=== PATIENT | male | born 1960 | race American Indian/Alaskan Native ===

== ENCOUNTER 2017-09-26 10:59 | Emergency (ER) | payer MEDICARE ==
[2017-09-26] MEDS ORDERED: ASPIRIN PO ONE (11:33)
[2017-09-26 11:58] LABS: Basophils % (Auto) 0.7 % (0.0-1.8); Eosinophils % (Auto) 0.7 % (0.0-4.3); Hematocrit 42.2 % (35.5-45.6); Hemoglobin 14.4 gm/dl (11.8-15.2); Lymphocytes # (Auto) 1.6 K/mm3 (1.2-5.4); Lymphocytes % (Auto) 24.9 % (13.4-35.0); Mean Corpuscular HGB Conc 34 % (32-34); Mean Corpuscular Hemoglobin 32 pg (28-32); Mean Corpuscular Volume 93 fl (84-94); Monocytes # (Auto) 0.6 K/mm3 (0.0-0.8); Platelet Count 159 K/mm3 (140-440); Red Blood Count 4.56 M/mm3 (3.65-5.03); Red Cell Distribution Width 14.2 % (13.2-15.2)
[2017-09-26 12:14] LABS: Alanine Aminotransferase 21 units/L (7-56); Albumin 3.8 g/dL (3.9-5); BUN/Creatinine Ratio 16; Blood Urea Nitrogen 13 mg/dL (9-20); Calcium 8.9 mg/dL (8.4-10.2); Hemolysis Index 4; Lipase 42 units/L (13-60)
[2017-09-26 12:17] LABS: Bilirubin,Direct < 0.2 mg/dL (0-0.2)
--- NOTE | 2017-09-26 23:48 | Emergency Department Report ---
HPI - General Chief Complaint: Abdominal Pain Time Seen by Provider: 09/26/17 23:19 - HPI HPI: Room 7 The patient is a 57-year-old male presented with a chief complaint of abdominal pain. The patient states 1 month his pain in the midepigastric region that worsens with meals. The patient states he has a constant abdominal pain but it worsens with meals. The patient states she has a constant bloated feeling. Patient is to nausea but denies vomiting. Patient states his stools have switched recently from loose to form to black (approximately 1-2 weeks ago). Patient last bowel movement occurred in the ED and was watery. Patient states 2 days ago had an episode of left-sided chest pain that was sharp in nature and lasted 1 minute. Patient currently denies chest pain. Patient denied having shortness of breath, nausea/vomiting or diaphoresis with the previous chest pain Location: Abdomen Duration: 1 Month Quality: Pain Severity: 8/10 Modifying factors: [see above] Context: [see above] Mode of transportation: The patient drove himself to the emergency department and there are no visitors present ED Past Medical Hx - Past Medical History Previous Medical History?: Yes Hx Hypertension: Yes Hx Diabetes: Yes Hx Liver Disease: Yes (cirrhosis) Additional medical history: cirrhosis, pacemaker - Surgical History Past Surgical History?: Yes Hx Pacemaker: Yes Additional Surgical History: PACEMAKER - Family History Family history: no significant - Social History Smoking Status: Current Every Day Smoker (1/2 ppd) Substance Use Type: Marijuana - Medications Home Medications: Home Medications Medication Instructions Recorded Confirmed Last Taken Type Finasteride [Propecia] 1 mg PO QDAY 05/17/13 09/27/17 Unknown History Diphenoxylate/Atropine [Lomotil] 2 tab PO QID PRN #20 tablet 09/27/17 Unknown Rx Famotidine [Pepcid] 20 mg PO BID #20 tablet 09/27/17 Unknown Rx Gabapentin [Neurontin] 300 mg PO BID 09/27/17 09/27/17 Unknown History HYDROcodone/APAP 5-325 [[place] 1 - 2 each PO Q6HR PRN #14 tablet 09/27/17 Unknown Rx 5/325] Insulin Aspart Prot/Aspart(Nf) 30 units SQ BID 09/27/17 09/27/17 Unknown History [Novolog Mix 70/30] Metoprolol [Lopressor TAB] 50 mg PO BID 09/27/17 09/27/17 Unknown History Promethazine [Phenergan TAB] 25 mg PO Q6HR PRN #20 tab 09/27/17 Unknown Rx Promethazine [Phenergan] 25 mg [place] Q6HR PRN #5 supp.rect 09/27/17 Unknown Rx Rifaximin [Xifaxan] 550 mg PO BID 09/27/17 09/27/17 Unknown History Rivaroxaban [Xarelto] 20 mg PO QDAY 09/27/17 09/27/17 Unknown History Tamsulosin [Flomax] 0.4 mg PO QDAY 09/27/17 09/27/17 Unknown History Verapamil [Calan] 120 mg PO DAILY 09/27/17 09/26/17 Unknown History glipiZIDE [Glipizide] 5 mg PO DAILY 09/27/17 09/27/17 Unknown History ED Review of Systems ROS: Stated complaint: ABDOMINAL/CHEST PAIN Other details as noted in HPI Constitutional: denies: fever Respiratory: denies: shortness of breath Cardiovascular: chest pain Gastrointestinal: abdominal pain, nausea, vomiting, diarrhea, melena Physical Exam - Physical Exam Vital Signs: Vital Signs 09/26/17 09/26/17 11:27 23:36 Temperature 97.6 F 98.5 F Pulse Rate 62 64 Respiratory 16 20 Rate Blood Pressure 110/79 Blood Pressure 162/96 [Left] O2 Sat by Pulse 100 100 Oximetry Physical Exam: GENERAL: The patient is well-developed well-nourished male lying on stretcher not appearing to be in acute distress. [] HEENT: Normocephalic. Atraumatic. Extraocular motions are intact. Patient has moist mucous membranes. NECK: Supple. Trachea midline CHEST/LUNGS: Clear to auscultation. There is no respiratory distress noted. HEART/CARDIOVASCULAR: Regular. There is no tachycardia. There is no gallop rub or murmur. ABDOMEN: Abdomen is soft, with discomfort to palpation in the midepigastric region. No rebound or guarding. Patient has normal bowel sounds. There is no abdominal distention. SKIN: There is no rash. There is no edema. There is no diaphoresis. NEURO: The patient is awake, alert, and oriented. The patient is cooperative. The patient has normal speech MUSCULOSKELETAL: There is no evidence of acute injury. STOOL SAMPLE PROVIDED IN CUP BY PATIENT: johsnon liquid, guaiac negative ED Course Vital Signs 09/26/17 09/26/17 11:27 23:36 Temperature 97.6 F 98.5 F Pulse Rate 62 64 Respiratory 16 20 Rate Blood Pressure 110/79 Blood Pressure 162/96 [Left] O2 Sat by Pulse 100 100 Oximetry - Consultations Consultation #1: 09/27/17 01:34 GI paged 09/27/17 01:[address] Dorado-can have patient follow-up as outpatient ED Medical Decision Making - Lab Data Result diagrams: 09/26/17 11:41 09/26/17 11:41 Laboratory Tests 09/26/17 09/26/17 09/26/17 11:41 11:41 14:53 WBC 6.3 RBC 4.56 Hgb 14.4 Hct 42.2 MCV 93 MCH 32 MCHC 34 RDW 14.2 Plt Count 159 Lymph % (Auto) 24.9 [place] % (Auto) 9.0 H Eos % (Auto) 0.7 Baso % (Auto) 0.7 Lymph # 1.6 [place] # 0.6 Eos # 0.0 Baso # 0.0 Seg Neutrophils % 64.7 Seg Neutrophils # 4.1 Sodium 142 Potassium 4.3 Chloride 104.3 Carbon Dioxide 24 Anion Gap 18 BUN 13 Creatinine 0.8 Estimated GFR > 60 BUN/Creatinine Ratio 16 Glucose 146 H POC Glucose Calcium 8.9 Total Bilirubin 0.50 Direct Bilirubin < 0.2 Indirect Bilirubin 0.3 AST 18 ALT 21 Alkaline Phosphatase 68 Troponin T < 0.010 < 0.010 Total Protein 6.7 Albumin 3.8 L Albumin/Globulin Ratio 1.3 Lipase 42 09/26/17 09/26/17 17:15 19:02 WBC RBC Hgb Hct MCV MCH MCHC RDW Plt Count Lymph % (Auto) [place] % (Auto) Eos % (Auto) Baso % (Auto) Lymph # [place] # Eos # Baso # Seg Neutrophils % Seg Neutrophils # Sodium Potassium Chloride Carbon Dioxide Anion Gap BUN Creatinine Estimated GFR BUN/Creatinine Ratio Glucose POC Glucose 75 Calcium Total Bilirubin Direct Bilirubin Indirect Bilirubin AST ALT Alkaline Phosphatase Troponin T < 0.010 Total Protein Albumin Albumin/Globulin Ratio Lipase - EKG Data -: EKG Interpreted by De EKG shows normal: sinus rhythm Rate: normal - EKG Data When compared to previous EKG there are: no significant change Interpretation: unchanged when compared t (06/05/2017), nonspecific ST-T wave peter - Radiology Data Radiology results: report reviewed (CT abdomen and pelvis), image reviewed (CT abdomen and pelvis) FINAL REPORT PROCEDURE: CT ABDOMEN PELVIS WO CON TECHNIQUE: Computerized axial tomography of the abdomen and pelvis was performed without intravenous contrast. This study is performed without intravascular contrast material and its sensitivity for abdominal and pelvic pathology, including neoplasms, inflammation, abscess, free fluid, thrombosis, arterial dissection and infarction, is reduced compared with a contrast enhanced study. HISTORY: epigastric abdominal pain COMPARISON: No prior studies are available for comparison. FINDINGS: Visualized lower thorax: No significant abnormality. Liver: Normal size and attenuation. Spleen: Normal size and attenuation. Gallbladder and biliary system: There has been a cholecystectomy. Bile ducts are normal in caliber.. Pancreas: There is edema surrounding the tail the pancreas. There is focal thickening of the pancreatic tail. Findings suggest possibility of pancreatitis. Mass considered less likely but not excluded. Contrast-enhanced exam may be helpful. Correlation with amylase and lipase levels may be helpful.. Adrenals: Normal. Kidneys: There are no kidney stones or ureteral stones. There is no hydronephrosis.. GI tract: There is no bowel obstruction. There are thickened loops of small bowel suggesting possible enteritis. The appendix is normal.. Lymph nodes and mesentery: Normal. Vasculature: Normal. Bladder: Normal. Reproductive organs: Normal. Peritoneum: There is no ascites or free air, abscess or adenopathy.. Musculoskeletal structures: No significant abnormality. Other: None. IMPRESSION: There has been a cholecystectomy. Bile ducts are normal in caliber.. There is edema surrounding the tail the pancreas. There is focal thickening of the pancreatic tail. Findings suggest possibility of pancreatitis. Mass considered less likely but not excluded. Contrast-enhanced exam may be helpful. Correlation with amylase and lipase levels may be helpful.. There are no kidney stones or ureteral stones. There is no hydronephrosis.. There is no bowel obstruction. There are thickened loops of small bowel suggesting possible enteritis. The appendix is normal.. There is no ascites or free air, abscess or adenopathy.. . Transcribed By: CO Dictated By: REINA FLOR MD Electronically Authenticated By: REINA FLOR MD Signed Date/Time: 09/26/172121 DD/ 21 TD/TT: 09/26/172121 - Differential Diagnosis pancreati, partial small bowel instruction, peptic ulcer disease, gastritis Critical care attestation.: If time is entered above; I have spent that time in minutes in the direct care of this critically ill patient, excluding procedure time. ED Disposition Clinical Impression: Acute abdominal pain Disposition: TO HOME OR SELFCARE Is pt being admited?: No Does the pt Need Aspirin: No Condition: Stable Instructions: Abdominal Pain (ED) Additional Instructions: Return to the emergency department immediately should you develop worsening symptoms, fever, inability to tolerate food or liquid or any other concerns. Prescriptions: Diphenoxylate/Atropine [Lomotil] 2 tab PO QID PRN #20 tablet PRN Reason: Diarrhea Famotidine [Pepcid] 20 mg PO BID #20 tablet HYDROcodone/APAP 5-325 [[place] 5/325] 1 - 2 each PO Q6HR PRN #14 tablet PRN Reason: Pain Promethazine [Phenergan TAB] 25 mg PO Q6HR PRN #20 tab PRN Reason: Nausea Promethazine [Phenergan] 25 mg [place] Q6HR PRN #5 supp.rect PRN Reason: Vomiting Referrals: PRIMARY CARE, [Primary Care Provider] - 3-5 Days PARVIZ DORADO MD [Staff Physician] - 3-5 Days Time of Disposition: 01:50
--- NOTE | 2017-09-27 01:27 | Cat Scan Report ---
FINAL REPORT PROCEDURE: CT ABDOMEN PELVIS WO CON TECHNIQUE: Computerized axial tomography of the abdomen and pelvis was performed without intravenous contrast. This study is performed without intravascular contrast material and its sensitivity for abdominal and pelvic pathology, including neoplasms, inflammation, abscess, free fluid, thrombosis, arterial dissection and infarction, is reduced compared with a contrast enhanced study. HISTORY: epigastric abdominal pain COMPARISON: No prior studies are available for comparison. FINDINGS: Visualized lower thorax: No significant abnormality. Liver: Normal size and attenuation. Spleen: Normal size and attenuation. Gallbladder and biliary system: There has been a cholecystectomy. Bile ducts are normal in caliber.. Pancreas: There is edema surrounding the tail the pancreas. There is focal thickening of the pancreatic tail. Findings suggest possibility of pancreatitis. Mass considered less likely but not excluded. Contrast-enhanced exam may be helpful. Correlation with amylase and lipase levels may be helpful.. Adrenals: Normal. Kidneys: There are no kidney stones or ureteral stones. There is no hydronephrosis.. GI tract: There is no bowel obstruction. There are thickened loops of small bowel suggesting possible enteritis. The appendix is normal.. Lymph nodes and mesentery: Normal. Vasculature: Normal. Bladder: Normal. Reproductive organs: Normal. Peritoneum: There is no ascites or free air, abscess or adenopathy.. Musculoskeletal structures: No significant abnormality. Other: None. IMPRESSION: There has been a cholecystectomy. Bile ducts are normal in caliber.. There is edema surrounding the tail the pancreas. There is focal thickening of the pancreatic tail. Findings suggest possibility of pancreatitis. Mass considered less likely but not excluded. Contrast-enhanced exam may be helpful. Correlation with amylase and lipase levels may be helpful.. There are no kidney stones or ureteral stones. There is no hydronephrosis.. There is no bowel obstruction. There are thickened loops of small bowel suggesting possible enteritis. The appendix is normal.. There is no ascites or free air, abscess or adenopathy.. .
[2017-09-27 02:13] VITALS: BP 150/89
== END 2017-09-27 02:33 | disposition home or self-care (01) ==
LOC: ED 10:59
DX: R10.13 Epigastric pain (principal); I10 Essential (primary) hypertension; E11.9 Type 2 diabetes mellitus without complications; F17.210 Nicotine dependence, cigarettes, uncomplicated; F12.10 Cannabis abuse, uncomplicated; Z91.041 Radiographic dye allergy status; Z95.0 Presence of cardiac pacemaker
CPT/HCPCS: 36415; 74176; 80048; 80074; 82271; 82962; 83690; 84484; 85025; 93005; 93010

== ENCOUNTER 2018-05-02 07:22 | Emergency (ER) | payer MEDICARE ==
[2018-05-02 07:44] VITALS: BP 118/78
[2018-05-02] MEDS ORDERED: CARAFATE PO ONE (09:55)
[2018-05-02] MEDS ORDERED: PROTONIX PO ONE (09:55)
[2018-05-02] MEDS ORDERED: ZOFRAN ODT PO ONE (09:56)
[2018-05-02] MEDS ORDERED: NORCO 10/325 PO ONE (09:56)
--- NOTE | 2018-05-02 10:06 | Emergency Department Report ---
ED General Adult HPI - General Chief complaint: Abdominal Pain Stated complaint: STOMACH PAIN Time Seen by Provider: 05/02/18 09:39 Source: patient Mode of arrival: Ambulatory Limitations: No Limitations - History of Present Illness Initial comments: Patient presents to the emergency department with a chief complaint of abdominal pain for the last 2 months. Patient has a history of abdominal pain and sees a fish packer who is Dr. Dorado. Patient states he has a EGD scheduled next month but after eating waterlily yesterday he began to have significant amount of upper abdominal pain and thought he should be seen in emergency department. Patient denies any chest pain, shortness of breath. -: Gradual Location: abdomen Severity scale (0 -10): 6 Quality: sharp Consistency: constant Improves with: none Worsens with: none Associated Symptoms: denies other symptoms Treatments Prior to Arrival: other (tramadol) - Related Data Home Medications Medication Instructions Recorded Confirmed Last Taken Finasteride [Propecia] 1 mg PO QDAY 05/17/13 09/27/17 Unknown Gabapentin [Neurontin] 300 mg PO BID 09/27/17 09/27/17 Unknown Insulin Aspart Prot/Aspart(Nf) 30 units SQ BID 09/27/17 09/27/17 Unknown [Novolog Mix 70/30] Metoprolol [Lopressor TAB] 50 mg PO BID 09/27/17 09/27/17 Unknown Rifaximin [Xifaxan] 550 mg PO BID 09/27/17 09/27/17 Unknown Rivaroxaban [Xarelto] 20 mg PO QDAY 09/27/17 09/27/17 Unknown Tamsulosin [Flomax] 0.4 mg PO QDAY 09/27/17 09/27/17 Unknown Verapamil [Calan] 120 mg PO DAILY 09/27/17 09/26/17 Unknown glipiZIDE [Glipizide] 5 mg PO DAILY 09/27/17 09/27/17 Unknown Previous Rx's Medication Instructions Recorded Last Taken Type Diphenoxylate/Atropine [Lomotil] 2 tab PO QID PRN #20 tablet 09/27/17 Unknown Rx Famotidine [Pepcid] 20 mg PO BID #20 tablet 09/27/17 Unknown Rx HYDROcodone/APAP 5-325 [[place] 1 - 2 each PO Q6HR PRN #14 tablet 09/27/17 Unknown Rx 5/325] Promethazine [Phenergan TAB] 25 mg PO Q6HR PRN #20 tab 09/27/17 Unknown Rx Promethazine [Phenergan] 25 mg [place] Q6HR PRN #5 supp.rect 09/27/17 Unknown Rx Dicyclomine [Bentyl] 20 mg PO QID #20 tablet 05/02/18 Unknown Rx HYDROcodone/ACETAMINOPHEN [[place] 1 each PO 20 PRN #12 tablet 05/02/18 Unknown Rx 5-325 Tablet] Pantoprazole [Protonix] 40 mg PO QDAY #20 tablet 05/02/18 Unknown Rx Sucralfate [Carafate] 1 gm PO Q6HR PRN #180 udc 05/02/18 Unknown Rx Allergies Allergy/AdvReac Type Severity Reaction Status Date / Time Iodinated Contrast- Oral and AdvReac Unknown Verified 09/27/17 00:23 IV Dye iodine AdvReac Unknown Verified 10/24/14 20:21 ED Review of Systems ROS: Stated complaint: STOMACH PAIN Other details as noted in HPI Comment: All other systems reviewed and negative Constitutional: denies: chills, fever Eyes: denies: eye pain, eye discharge, vision change ENT: denies: ear pain, throat pain Respiratory: denies: cough, shortness of breath, wheezing Cardiovascular: denies: chest pain, palpitations Endocrine: no symptoms reported Gastrointestinal: denies: abdominal pain, nausea, diarrhea Genitourinary: denies: urgency, dysuria Musculoskeletal: denies: back pain, joint swelling, arthralgia Skin: denies: rash, lesions Neurological: denies: headache, weakness, paresthesias Psychiatric: denies: anxiety, depression Hematological/Lymphatic: denies: easy bleeding, easy bruising ED Past Medical Hx - Past Medical History Hx Hypertension: Yes Hx Diabetes: Yes Hx Liver Disease: Yes (cirrhosis) Additional medical history: cirrhosis, pacemaker - Surgical History Hx Pacemaker: Yes Additional Surgical History: PACEMAKER - Social History Smoking Status: Current Every Day Smoker Substance Use Type: Marijuana - Medications Home Medications: Home Medications Medication Instructions Recorded Confirmed Last Taken Type Finasteride [Propecia] 1 mg PO QDAY 05/17/13 09/27/17 Unknown History Diphenoxylate/Atropine [Lomotil] 2 tab PO QID PRN #20 tablet 09/27/17 Unknown Rx Famotidine [Pepcid] 20 mg PO BID #20 tablet 09/27/17 Unknown Rx Gabapentin [Neurontin] 300 mg PO BID 09/27/17 09/27/17 Unknown History HYDROcodone/APAP 5-325 [[place] 1 - 2 each PO Q6HR PRN #14 tablet 09/27/17 Unknown Rx 5/325] Insulin Aspart Prot/Aspart(Nf) 30 units SQ BID 09/27/17 09/27/17 Unknown History [Novolog Mix 70/30] Metoprolol [Lopressor TAB] 50 mg PO BID 09/27/17 09/27/17 Unknown History Promethazine [Phenergan TAB] 25 mg PO Q6HR PRN #20 tab 09/27/17 Unknown Rx Promethazine [Phenergan] 25 mg [place] Q6HR PRN #5 supp.rect 09/27/17 Unknown Rx Rifaximin [Xifaxan] 550 mg PO BID 09/27/17 09/27/17 Unknown History Rivaroxaban [Xarelto] 20 mg PO QDAY 09/27/17 09/27/17 Unknown History Tamsulosin [Flomax] 0.4 mg PO QDAY 09/27/17 09/27/17 Unknown History Verapamil [Calan] 120 mg PO DAILY 09/27/17 09/26/17 Unknown History glipiZIDE [Glipizide] 5 mg PO DAILY 09/27/17 09/27/17 Unknown History Dicyclomine [Bentyl] 20 mg PO QID #20 tablet 05/02/18 Unknown Rx HYDROcodone/ACETAMINOPHEN [[place] 1 each PO 20 PRN #12 tablet 05/02/18 Unknown Rx 5-325 Tablet] Pantoprazole [Protonix] 40 mg PO QDAY #20 tablet 05/02/18 Unknown Rx Sucralfate [Carafate] 1 gm PO Q6HR PRN #180 udc 05/02/18 Unknown Rx ED Physical Exam - General Limitations: No Limitations General appearance: alert, in no apparent distress - Head Head exam: Present: atraumatic, normocephalic - Eye Eye exam: Present: normal appearance - ENT ENT exam: Present: mucous membranes moist - Neck Neck exam: Present: normal inspection - Respiratory Respiratory exam: Present: normal lung sounds bilaterally. Absent: respiratory distress, wheezes, rales, rhonchi, stridor - Cardiovascular Cardiovascular Exam: Present: regular rate, normal rhythm. Absent: systolic murmur, diastolic murmur, rubs, gallop - GI/Abdominal GI/Abdominal exam: Present: soft, normal bowel sounds, other (healed surgical scar from cholecystectomy). Absent: distended, tenderness - Rectal Rectal exam: Present: deferred - Extremities Exam Extremities exam: Present: normal inspection - Back Exam Back exam: Present: normal inspection - Neurological Exam Neurological exam: Present: alert, oriented X3 - Psychiatric Psychiatric exam: Present: normal affect, normal mood - Skin Skin exam: Present: warm, dry, intact, normal color. Absent: rash ED Course Vital Signs 05/02/18 05/02/18 07:41 10:10 Temperature 99.8 F H Pulse Rate 62 Respiratory 16 16 Rate Blood Pressure 118/78 O2 Sat by Pulse 99 Oximetry ED Medical Decision Making - Lab Data Result diagrams: 05/02/18 10:19 05/02/18 10:19 - Medical Decision Making Discussed results with patient Critical care attestation.: If time is entered above; I have spent that time in minutes in the direct care of this critically ill patient, excluding procedure time. ED Disposition Clinical Impression: Abdominal pain Disposition: DC-01 TO HOME OR SELFCARE Is pt being admited?: No Does the pt Need Aspirin: No Condition: Stable Instructions: Abdominal Pain (ED) Additional Instructions: return if worse Prescriptions: Dicyclomine [Bentyl] 20 mg PO QID #20 tablet HYDROcodone/ACETAMINOPHEN [[place] 5-325 Tablet] 1 each PO 20 PRN #12 tablet PRN Reason: pain Pantoprazole [Protonix] 40 mg PO QDAY #20 tablet Sucralfate [Carafate] 1 gm PO Q6HR PRN #180 udc PRN Reason: pain Referrals: PRIMARY CARE, [Primary Care Provider] - 3-5 Days PARVIZ DORADO MD [Staff Physician] - 3-5 Days Time of Disposition: 11:59
[2018-05-02 10:36] LABS: Basophils % (Auto) 0.5 % (0.0-1.8); Eosinophils % (Auto) 0.7 % (0.0-4.3); Hematocrit 46.6 % (35.5-45.6); Hemoglobin 15.8 gm/dl (11.8-15.2); Lymphocytes # (Auto) 1.4 K/mm3 (1.2-5.4); Lymphocytes % (Auto) 23.7 % (13.4-35.0); Mean Corpuscular HGB Conc 34 % (32-34); Mean Corpuscular Hemoglobin 31 pg (28-32); Mean Corpuscular Volume 92 fl (84-94); Monocytes # (Auto) 0.5 K/mm3 (0.0-0.8); Monocytes % (Auto) 9.2 % (0.0-7.3); Platelet Count 157 K/mm3 (140-440); Red Blood Count 5.07 M/mm3 (3.65-5.03); Red Cell Distribution Width 13.3 % (13.2-15.2)
--- NOTE | 2018-05-02 10:39 | XRay Report ---
ABDOMINAL SERIES: History: Abdominal pain. Erect chest film shows no acute or significant changes involving the heart or lung brown. 2-lead pacemaker device is in place. There is no evidence of free air beneath the diaphragms. The gas pattern within the abdomen is unremarkable. There is no evidence of bowel dilatation, significant air-fluid levels, or masses. Organ shadows are unremarkable. Cholecystectomy changes. IMPRESSION: No acute abdominal process.
[2018-05-02 11:20] LABS: Alanine Aminotransferase 19 units/L (7-56); BUN/Creatinine Ratio 14; Blood Urea Nitrogen 15 mg/dL (9-20); Calcium 9.4 mg/dL (8.4-10.2); Hemolysis Index 46; Lipase 50 units/L (13-60)
[2018-05-02 12:10] LABS: Bilirubin,Urine NEG (Negative); Blood,Urine SM (Negative); Color,Urine Yellow (Yellow); Mucus,Urine 3+ /HPF; Protein,Urine <15 mg/dL mg/dL (Negative); Urobilinogen,Urine < 2.0 mg/dL (<2.0)
== END 2018-05-02 12:09 | disposition home or self-care (01) ==
LOC: ED 07:22
DX: R10.9 Unspecified abdominal pain (principal); I10 Essential (primary) hypertension; E11.9 Type 2 diabetes mellitus without complications; F17.200 Nicotine dependence, unspecified, uncomplicated; F12.90 Cannabis use, unspecified, uncomplicated; Z95.0 Presence of cardiac pacemaker; Z79.4 Long term (current) use of insulin; Z88.8 Allergy status to other drugs, medicaments and biological substances; Z91.041 Radiographic dye allergy status
CPT/HCPCS: 36415; 74022; 80053; 81001; 83690; 84484; 85025; 93005; 93010; 99284; Q0162

== ENCOUNTER 2020-10-15 12:18 | Day surgery (SDC) | payer MEDICARE ==
--- NOTE | 2020-10-15 12:52 | Anesthesia Day of Surgery ---
Anesthesia Day of Surgery - Day of Surgery Patient Examined: Yes Patient H&P Reviewed: Yes Patient is NPO: Yes
--- NOTE | 2020-10-15 12:52 | Anesthesia Consultation ---
Anesthesia Consult and Med Hx Date of service: 10/15/20 - Airway Anesthetic Teeth Evaluation: Partials (upper) ROM Head & Neck: Adequate Mental/Hyoid Distance: Adequate Mallampati Class: Class II Intubation Access Assessment: Probably Good - Pre-Operative Health Status ASA Pre-Surgery Classification: ASA3 Proposed Anesthetic Plan: MAC - Pulmonary Hx Smoking: Yes (current smoker) - Cardiovascular System Hx Hypertension: Yes Hx Cardia Arrhythmia: Yes (a-fib) Hx Pacemaker: Yes - Endocrine Hx Renal Disease: No (BPH) Hx Liver Disease: Yes (cirrhosis) Hx Non-Insulin Dependent Diabetes: Yes
[2020-10-15] MEDS ORDERED: SODIUM CHLORIDE 0.9% 1000 ML 1,000 ML IV SCH (13:00)
[2020-10-15 13:16] LABS: Basophils % (Auto) 0.8 % (0.0-1.8); Eosinophils # (Auto) 0.1 K/mm3 (0.0-0.4); Eosinophils % (Auto) 0.9 % (0.0-4.3); Hematocrit 40.6 % (35.5-45.6); Hemoglobin 13.7 gm/dl (11.8-15.2); Lymphocytes # (Auto) 0.9 K/mm3 (1.2-5.4); Lymphocytes % (Auto) 15.5 % (13.4-35.0); Mean Corpuscular HGB Conc 34 % (32-34); Mean Corpuscular Volume 97 fl (84-94); Monocytes # (Auto) 0.5 K/mm3 (0.0-0.8); Monocytes % (Auto) 8.6 % (0.0-7.3); Platelet Count 157 K/mm3 (140-440); Red Cell Distribution Width 14.3 % (13.2-15.2)
[2020-10-15 13:27] LABS: INR 1.69 (0.87-1.13)
[2020-10-15 13:28] LABS: Partial Thromboplastin Time 38.9 Sec. (24.2-36.6)
[2020-10-15 13:37] LABS: BUN/Creatinine Ratio 21; Blood Urea Nitrogen 21 mg/dL (9-20); Calcium 8.8 mg/dL (8.4-10.2); Hemolysis Index 7
[2020-10-15] MEDS ORDERED: propofoL 200 MG/20 ML VIAL IV ONE (13:48)
[2020-10-15] MEDS ORDERED: ATROPINE 0.1% (1 MG/10 ML) CARDIAC SYRINGE ONE (14:14)
--- NOTE | 2020-10-15 15:08 | Short Stay Summary ---
Short Stay Documentation Date of service: 10/15/20 - History H&P: obtained from office - Allergies and Medications Current Medications: Allergies Iodinated Contrast Media [Iodinated Contrast- Oral and IV Dye] Adverse Reaction (Verified 09/27/17 00:23) Unknown iodine Adverse Reaction (Verified 10/24/14 20:21) Unknown Home Medications Medication Instructions Recorded Confirmed Last Taken Type Finasteride [Propecia] 1 mg PO QDAY 05/17/13 09/27/17 Unknown History Diphenoxylate/Atropine [Lomotil] 2 tab PO QID PRN #20 tablet 09/27/17 Unknown Rx Famotidine [Pepcid] 20 mg PO BID #20 tablet 09/27/17 Unknown Rx Gabapentin [Neurontin] 300 mg PO BID 09/27/17 09/27/17 Unknown History HYDROcodone/APAP 5-325 [[place] 1 - 2 each PO Q6HR PRN #14 tablet 09/27/17 Unknown Rx 5/325] Insulin Aspart Prot/Aspart(Nf) 30 units SQ BID 09/27/17 09/27/17 Unknown History [Novolog Mix 70/30] Metoprolol [Lopressor TAB] 50 mg PO BID 09/27/17 09/27/17 Unknown History Promethazine [Phenergan TAB] 25 mg PO Q6HR PRN #20 tab 09/27/17 Unknown Rx Promethazine [Phenergan] 25 mg [place] Q6HR PRN #5 supp.rect 09/27/17 Unknown Rx Rifaximin [Xifaxan] 550 mg PO BID 09/27/17 09/27/17 Unknown History Rivaroxaban [Xarelto] 20 mg PO QDAY 09/27/17 09/27/17 Unknown History Tamsulosin [Flomax] 0.4 mg PO QDAY 09/27/17 09/27/17 Unknown History glipiZIDE [Glipizide] 5 mg PO DAILY 09/27/17 09/27/17 Unknown History verapamiL [[place]] 120 mg PO DAILY 09/27/17 09/26/17 Unknown History Dicyclomine [Bentyl] 20 mg PO QID #20 tablet 05/02/18 Unknown Rx HYDROcodone/ACETAMINOPHEN [[place] 1 each PO 20 PRN #12 tablet 05/02/18 Unknown Rx 5-325 Tablet] Pantoprazole [Protonix] 40 mg PO QDAY #20 tablet 05/02/18 Unknown Rx Sucralfate [Carafate] 1 gm PO Q6HR PRN #180 udc 05/02/18 Unknown Rx Active Medications Sodium Chloride (Nacl 0.9% 1000 Ml) 1,000 mls @ 42 mls/hr IV DIRECT ELOISA - Brief post op/procedure progress note Date of procedure: 10/15/20 Pre-op diagnosis: Persistent Afib Post-op diagnosis: same Procedure: Syncronized Cardioversion Anesthesia: MAC Estimated blood loss: none Condition: stable - Disposition Condition at discharge: Good Disposition: DC-01 TO HOME OR SELFCARE - Discharge Diagnoses (1) Persistent atrial fibrillation Status: Chronic (2) ICD (implantable cardioverter-defibrillator), single, in situ Status: Chronic (3) Palpitations Status: Chronic Short Stay Discharge Plan Activity: advance as tolerated Diet: low fat, low cholesterol, low salt Wound: open to air, keep clean and dry, per your surgeon's advice Follow up with: MARÍA LOMELI MD [Staff Physician] - 7 Days PRIMARY CAREMD [Primary Care Provider] - 7 Days (Follow up in our [place] office with Dr. Cali Lomeli on 11/13/20 @ 2:15PM)
--- NOTE | 2020-10-15 15:16 | Electrophysiological Studies ---
ELECTROPHYSIOLOGY OUTPATIENT PROCEDURE NOTE PREPROCEDURE DIAGNOSES: 1. Refractory atrial fibrillation. 2. Apical variant cardiomyopathy. PROCEDURE PERFORMED: Direct current cardioversion. ANESTHESIA: Local and Monitored anesthesia care per Anesthesiology service. DESCRIPTION OF PROCEDURE: The patient was brought to the procedure room. The defibrillator pads were placed in the anterior left sternal region and posterior apical region. Synced biphasic direct current of 200 joules was delivered with conversion to normal sinus rhythm. COMPLICATIONS: None. ESTIMATED BLOOD LOSS: 0 mL. ASSESSMENT: Successful direct current cardioversion of atrial fibrillation to normal sinus rhythm. PLAN: 1. A 12-lead EKG. 2. Continue oral anticoagulation. 3. Follow up in 1 month. JOB# [id number] CHARLA/AMA
--- NOTE | 2020-10-15 15:44 | Post Anesthesia Evaluation ---
- Post Anesthesia Evaluation Patient Participated: Yes Airway Patent: Yes Stable Respiratory Function: Yes Nausea/Vomiting: No Temp > 96.8F: Yes Pain Manageable: Yes Adequeate Hydration: Yes Anesthesia Complications: No
[2020-10-15 16:55] VITALS: BP 170/100
== END 2020-10-15 16:35 | disposition home or self-care (01) ==
LOC: CATHLABREC 12:18
PROVIDERS: ATTEND Internal Medicine Cardiovascular Disease
DX: I48.19 Other persistent atrial fibrillation (principal); I47.2 Ventricular tachycardia; I42.8 Other cardiomyopathies; F17.210 Nicotine dependence, cigarettes, uncomplicated; G44.019 Episodic cluster headache, not intractable; E78.00 Pure hypercholesterolemia, unspecified; I10 Essential (primary) hypertension; Z79.4 Long term (current) use of insulin; J44.9 Chronic obstructive pulmonary disease, unspecified; G47.30 Sleep apnea, unspecified; M19.90 Unspecified osteoarthritis, unspecified site; E11.9 Type 2 diabetes mellitus without complications; F41.9 Anxiety disorder, unspecified; Z98.890 Other specified postprocedural states; Z88.8 Allergy status to other drugs, medicaments and biological substances; Z95.810 Presence of automatic (implantable) cardiac defibrillator; Z79.899 Other long term (current) drug therapy; Z91.041 Radiographic dye allergy status; Z80.8 Family history of malignant neoplasm of other organs or systems
CPT/HCPCS: 36415; 80048; 85025; 85610; 85730; 92960; 93005; J2704; J7030; J0461